=== PATIENT | male | born 1940 | race Caucasian/White ===

== ENCOUNTER 2016-12-06 21:10 | Inpatient (IN) | payer OTHER ==
[~2016-12-06] VITALS: Ht 175.3 cm; Wt 74.8 kg
[~2016-12-06 21:10] MED LIST: CHOLESTYRAMINE P4 GM PO; COMPAZINE10 MG PO; DOXYCYCLINE HY100 MG PO; FEOSOL45 MG PO; HYDROCODON-ACE1 EAC7 PO; IMODIUM MS REL1 EACH PO; Motrin PO; NORCO 5/3251 TABLET PO; ONDANSETRON HCL8 MG PO; STOOL SOFTENER100 MG PO; THORAZINE25 MG PO; TRAMADOL HCL50 MG PO; TYLENOL REGULA325 MG PO; VICODIN,LORT1 TABLET PO; Vicodin,Norco 5/325 PO
[2016-12-06 21:37] LABS: MCH 24.7 PG (29.0-34.0); MCHC 31.7 G/DL (30.0-36.0); MCV 78.1 FL (86-99); MEAN PLAT.VOLUME 10.4 uM^3 (9.0-12.4); PLATELET COUNT 287 K/uL (156-360); RBC DIS.WIDTH-CV 21.4 % (11.8-14.6); RBC DIS.WIDTH-SD 55.2 % (39-53)
[2016-12-06 21:38] LABS: RED BLOOD COUNT 5.38 M/uL (4.00-5.50)
[2016-12-06 21:56] LABS: CHLORIDE 105 mEq/L (99-109); SODIUM 142 mEq/L (136-147)
[2016-12-06 21:57] LABS: GLUCOSE 190 mg/dL (70-99)
[2016-12-06 21:59] LABS: ANION GAP 18 MEQ/L (2-14)
[2016-12-06 22:01] LABS: GFR ESTIMATE (CALCULATED) > 59 mL/min/
[2016-12-06 22:02] LABS: UREA NITROGEN (BUN) 19 mg/dL (9-23)
[2016-12-06 23:27] LABS: TOTAL BILIRUBIN 1.5 mg/dL (0.0-1.0)
[2016-12-06 23:28] LABS: ALKALINE PHOSPHATASE 121 IU/L (3-129)
[2016-12-06 23:31] LABS: DIRECT BILIRUBIN 0.8 mg/dL (0.0-0.3)
[2016-12-06 23:32] LABS: LIPASE 10 U/L (1.0-51.0)
[2016-12-06 23:53] LABS: TROP-I INTERPRETATION NEGATIVE; TROPONIN-I < 0.01 ng/mL (0.0-0.30)
[2016-12-07] MEDS ORDERED: PROCHLORPERAZIN10 MG PO (01:01)
[2016-12-07 01:14] LABS: SPECIFIC GRAVITY 1.081 (1.000-1.030)
[2016-12-07 01:20] LABS: COLOR DK YELLOW ((YELLOW)); LEUKOCYTES NEGATIVE; NITRITE NEGATIVE
[2016-12-07 01:21] LABS: ADD MIUA? NO; BILIRUBIN NEGATIVE; BLOOD NEGATIVE; GLUCOSE (STRIP) NEGATIVE; KETONES 5; PROTEIN (STRIP) 30; UCUL ADDED? NO; UROBILINOGEN 0.2 MG/DL (0.2-1.0)
[2016-12-07 04:07] VITALS: BP 101/59
[2016-12-07 06:57] LABS: Estimated Average Glucose 111 mg/dL (70-123); HEMOGLOBIN A1c (GLYCOHEMOGLOB) 5.5 % HGB (Below 5.7)
[2016-12-07 08:10] VITALS: BP 99/55
[2016-12-07 11:16] VITALS: BP 92/54
[2016-12-07 15:35] VITALS: BP 96/53
[2016-12-07 19:38] VITALS: BP 100/55
[2016-12-07 23:43] VITALS: BP 100/50
[2016-12-08 03:21] VITALS: BP 103/57
[2016-12-08 06:58] LABS: ALKALINE PHOSPHATASE 60 IU/L (3-129); ANION GAP 10 MEQ/L (2-14); CHLORIDE 111 MEQ/L (99-109); DIRECT BILIRUBIN 0.3 mg/dL (0.0-0.3); GFR ESTIMATE (CALCULATED) > 59 mL/min/; POTASSIUM 3.2 MEQ/L (3.7-5.4); SAMPLE HEMOLYSIS CHECK 0; SAMPLE ICTERIC CHECK 0; SAMPLE LIPEMIA CHECK 0; SODIUM 144 MEQ/L (136-147); UREA NITROGEN (BUN) 12 mg/dL (9-23)
[2016-12-08 07:01] LABS: GLUCOSE 78 mg/dL (70-99)
[2016-12-08 07:13] VITALS: BP 120/57
[2016-12-08 07:34] LABS: EOSINOPHIL (%) 0.6 % (0-5); HEMATOCRIT 30.5 % (38.0-50.0); IMMATURE GRANULOCYTE (%) 0.2 % (0.0-0.7); LYMPHOCYTE COUNT 0.9 K/uL (1.0-2.8); MCH 24.3 PG (29.0-34.0); MCHC 30.5 G/DL (30.0-36.0); MCV 79.6 FL (86-99); MONOCYTE (%) 11.3 % (3-12); MONOCYTE COUNT 0.5 K/uL (0-0.8); NEUTROPHIL (%) 67.7 % (45-76); NEUTROPHIL COUNT 3.2 K/uL (1.8-6.4); RBC DIS.WIDTH-CV 20.6 % (11.8-14.6)
[2016-12-08 07:44] LABS: RED BLOOD COUNT 3.83 M/uL (4.00-5.50); WHITE BLOOD COUNT 4.7 K/uL (4.1-10.2)
[2016-12-08 08:07] LABS: PLAT.SUFFICIENCY DECREASED; USER ID STC
[2016-12-08 08:19] LABS: PLATELET COUNT 110 K/uL (156-360)
[2016-12-08 16:02] VITALS: BP 125/80
[2016-12-08 23:10] VITALS: BP 125/60
[2016-12-09 07:19] LABS: ALKALINE PHOSPHATASE 59 IU/L (3-129); ANION GAP 11 MEQ/L (2-14); CHLORIDE 110 MEQ/L (99-109); GFR ESTIMATE (CALCULATED) > 59 mL/min/; GLUCOSE 69 mg/dL (70-99); POTASSIUM 3.2 MEQ/L (3.7-5.4); SAMPLE HEMOLYSIS CHECK 0; SAMPLE ICTERIC CHECK 0; SAMPLE LIPEMIA CHECK 0; SODIUM 145 MEQ/L (136-147); TOTAL BILIRUBIN 0.9 MG/DL (0.0-1.0); UREA NITROGEN (BUN) 5 mg/dL (9-23)
[2016-12-09 07:30] VITALS: BP 125/59
[2016-12-09 07:48] LABS: EOSINOPHIL (%) 1.8 % (0-5); EOSINOPHIL COUNT 0.1 K/uL (0-0.3); HEMATOCRIT 31.6 % (38.0-50.0); IMMATURE GRANULOCYTE (%) 0.5 % (0.0-0.7); LYMPHOCYTE COUNT 0.9 K/uL (1.0-2.8); MCH 24.3 PG (29.0-34.0); MCHC 30.7 G/DL (30.0-36.0); MCV 79.2 FL (86-99); MONOCYTE (%) 12.4 % (3-12); MONOCYTE COUNT 0.5 K/uL (0-0.8); NEUTROPHIL (%) 64.6 % (45-76); NEUTROPHIL COUNT 2.8 K/uL (1.8-6.4); RBC DIS.WIDTH-CV 20.1 % (11.8-14.6); RED BLOOD COUNT 3.99 M/uL (4.00-5.50); WHITE BLOOD COUNT 4.4 K/uL (4.1-10.2)
[2016-12-09 07:59] LABS: PLAT.SUFFICIENCY DECREASED; PLATELET COUNT 135 K/uL (156-360)
[2016-12-09 16:12] VITALS: BP 124/60
[2016-12-10] VITALS: BP 118/59
[2016-12-10 06:51] LABS: ALKALINE PHOSPHATASE 55 IU/L (3-129); ANION GAP 7 MEQ/L (2-14); CHLORIDE 110 MEQ/L (99-109); GFR ESTIMATE (CALCULATED) > 59 mL/min/; GLUCOSE 113 mg/dL (70-99); POTASSIUM 3.2 MEQ/L (3.7-5.4); SAMPLE HEMOLYSIS CHECK 0; SAMPLE ICTERIC CHECK 0; SAMPLE LIPEMIA CHECK 0; SODIUM 143 MEQ/L (136-147); TOTAL BILIRUBIN 0.7 MG/DL (0.0-1.0); UREA NITROGEN (BUN) 2 mg/dL (9-23)
[2016-12-10 07:28] LABS: EOSINOPHIL (%) 1.8 % (0-5); EOSINOPHIL COUNT 0.1 K/uL (0-0.3); HEMATOCRIT 31.5 % (38.0-50.0); IMMATURE GRANULOCYTE (%) 0.3 % (0.0-0.7); LYMPHOCYTE COUNT 0.9 K/uL (1.0-2.8); MCH 23.9 PG (29.0-34.0); MCHC 30.5 G/DL (30.0-36.0); MCV 78.4 FL (86-99); MONOCYTE (%) 11.6 % (3-12); MONOCYTE COUNT 0.4 K/uL (0-0.8); RBC DIS.WIDTH-CV 20.1 % (11.8-14.6); RBC DIS.WIDTH-SD 56.2 % (39-53); RED BLOOD COUNT 4.02 M/uL (4.00-5.50); WHITE BLOOD COUNT 3.4 K/uL (4.1-10.2)
[2016-12-10 07:38] LABS: PLAT.SUFFICIENCY DECREASED; PLATELET COUNT 139 K/uL (156-360); USER ID SDF
[2016-12-10 08:30] VITALS: BP 122/54
[2016-12-10 15:22] VITALS: BP 109/55
[2016-12-10 23:47] VITALS: BP 121/56
[2016-12-11 07:48] VITALS: BP 120/59
[2016-12-11] MEDS ORDERED: LEVAQUIN750 MG PO (08:18)
[2016-12-11 11:22] LABS: C DIFF TOXIN NEGATIVE (NEGATIVE); PROBE CHECK PASS; SPECIMEN PROCESSING CONTROL PASS
== END 2016-12-11 13:18 | disposition home or self-care (01) | DRG 871 ==
LOC: EME 21:10 → 2EAST 12-07 02:19 → EDOF 12-07 02:19 → 2EAST 12-07 03:49
PROVIDERS: Emergency Medicine; Hospitalist; Internal Medicine; Physician Assistant Medical
DX: A41.9 Sepsis, unspecified organism (principal); C18.9 Malignant neoplasm of colon, unspecified; J18.1 Lobar pneumonia, unspecified organism; C78.89 Secondary malignant neoplasm of other digestive organs; K57.32 Diverticulitis of large intestine without perforation or abscess without bleeding; K56.60 Unspecified intestinal obstruction; D72.829 Elevated white blood cell count, unspecified; I50.9 Heart failure, unspecified; E80.6 Other disorders of bilirubin metabolism; Z88.0 Allergy status to penicillin; K57.90 Diverticulosis of intestine, part unspecified, without perforation or abscess without bleeding; Z92.21 Personal history of antineoplastic chemotherapy
CPT/HCPCS: 71020; 71275; 74000; 74177; 80048; 80053; 80076; 81003; 82948; 83036; 83605; 83690; 83880; 84484; 85025; 85027; 87040; 87070; 87205; 87493; 93005; 94640; 94640 76; 99202; 99281; 99285; J0692; J1644; J1815; J1956; J3370; J3480; J7030; J7050; S0028; S0030

== ENCOUNTER 2017-06-09 10:46 | Inpatient (IN) | payer OTHER ==
[~2017-06-09] VITALS: Ht 175.3 cm; Wt 70.2 kg
[~2017-06-09 10:46] MED LIST changes: +LEVAQUIN750 MG PO; +PROCHLORPERAZIN10 MG PO
[2017-06-09 12:32] LABS: HEMATOCRIT 38.9 % (38.0-50.0); MCH 24.6 PG (29.0-34.0); MCHC 30.8 G/DL (30.0-36.0); MCV 79.9 FL (86-99); MEAN PLAT.VOLUME 10.1 uM^3 (9.0-12.4); PLATELET COUNT 207 K/uL (156-360); RBC DIS.WIDTH-CV 22.3 % (11.8-14.6); RBC DIS.WIDTH-SD 63.6 % (39-53); RED BLOOD COUNT 4.87 M/uL (4.00-5.50); WHITE BLOOD COUNT 7.9 K/uL (4.1-10.2)
[2017-06-09 12:59] LABS: CHLORIDE 105 mEq/L (99-109)
[2017-06-09 13:00] LABS: SODIUM 139 mEq/L (136-147)
[2017-06-09 13:02] LABS: GLUCOSE 133 mg/dL (70-99)
[2017-06-09 13:03] LABS: ANION GAP 10 MEQ/L (2-14)
[2017-06-09 13:04] LABS: TOTAL BILIRUBIN 1.2 mg/dL (0.0-1.0)
[2017-06-09 13:05] LABS: ALKALINE PHOSPHATASE 157 IU/L (3-129); GFR ESTIMATE (CALCULATED) > 59 mL/min/
[2017-06-09 13:06] LABS: EOSINOPHIL (%) 0 % (0-5); IMMATURE GRANULOCYTE (%) 0.4 % (0.0-0.7); INSTRUMENT ABS NEUTROPHIL CT 6.8 K/uL; LYMPHOCYTE COUNT 0.4 K/uL (1.0-2.8); MONOCYTE (%) 8.2 % (3-12); MONOCYTE COUNT 0.7 K/uL (0-0.8); NEUTROPHIL COUNT 6.8 K/uL (1.8-6.4)
[2017-06-09 13:07] LABS: UREA NITROGEN (BUN) 18 mg/dL (9-23)
[2017-06-09 13:09] LABS: LIPASE 15 U/L (1.0-51.0)
[2017-06-09] MEDS ORDERED: ATIVAN0.5 MG PO (16:43)
[2017-06-09] MEDS ORDERED: HYDROCODON-ACE1 EAC7 PO (16:43)
[2017-06-09] MEDS ORDERED: METOCLOPRAMIDE10 MG PO (16:43)
[2017-06-09 21:14] VITALS: BP 115/66
[2017-06-09 23:32] VITALS: BP 111/53
[2017-06-10 04:09] VITALS: BP 118/63
[2017-06-10 06:18] LABS: ANION GAP 5 MEQ/L (2-14); CHLORIDE 109 MEQ/L (99-109); GFR ESTIMATE (CALCULATED) > 59 mL/min/; POTASSIUM 4.2 MEQ/L (3.7-5.4); SAMPLE HEMOLYSIS CHECK 0; SAMPLE ICTERIC CHECK 0; SAMPLE LIPEMIA CHECK 0; SODIUM 142 MEQ/L (136-147); UREA NITROGEN (BUN) 15 mg/dL (9-23)
[2017-06-10 06:22] LABS: GLUCOSE 73 mg/dL (70-99)
[2017-06-10 06:23] LABS: HEMATOCRIT 30.7 % (38.0-50.0); MCH 25.4 PG (29.0-34.0); MCHC 30.9 G/DL (30.0-36.0); MCV 82.1 FL (86-99); RBC DIS.WIDTH-CV 22.5 % (11.8-14.6); RBC DIS.WIDTH-SD 65.9 % (39-53); WHITE BLOOD COUNT 6.1 K/uL (4.1-10.2)
[2017-06-10 06:57] LABS: RED BLOOD COUNT 3.74 M/uL (4.00-5.50)
[2017-06-10 07:21] LABS: PLATELET COUNT 132 K/uL (156-360)
[2017-06-10 07:48] VITALS: BP 129/68
[2017-06-10 12:00] VITALS: BP 148/68
[2017-06-10 16:00] VITALS: BP 148/68; BP 88/61
[2017-06-10 18:50] VITALS: BP 163/76
[2017-06-10 23:50] VITALS: BP 163/77
[2017-06-11] VITALS (7 sets, daily range): BP systolic 133–176; BP diastolic 61–86
[2017-06-11 10:41] LABS: HEMATOCRIT 36.4 % (38.0-50.0); MCHC 30.2 G/DL (30.0-36.0); MCV 82.7 FL (86-99); MEAN PLAT.VOLUME 10.7 uM^3 (9.0-12.4); PLATELET COUNT 147 K/uL (156-360); RBC DIS.WIDTH-CV 22.2 % (11.8-14.6); RBC DIS.WIDTH-SD 65.9 % (39-53); WHITE BLOOD COUNT 4.4 K/uL (4.1-10.2)
[2017-06-12 04:30] VITALS: BP 158/78
[2017-06-12 07:51] VITALS: BP 168/78
[2017-06-12 11:59] VITALS: BP 154/75
[2017-06-12 15:30] VITALS: BP 159/74
[2017-06-12 18:09] VITALS: BP 154/77
[2017-06-12 20:33] VITALS: BP 139/74
[2017-06-13 00:01] VITALS: BP 129/71
[2017-06-13 03:35] VITALS: BP 128/60
[2017-06-13 08:07] VITALS: BP 157/76
[2017-06-13] MEDS ORDERED: LOPRESSOR25 MG PO (08:42)
== END 2017-06-13 13:42 | disposition home health service (06) | DRG 375 ==
LOC: EME 10:46 → 4EAST 17:11 → EDOF 17:11 → 4EAST 21:06 → ENRESERV 06-12 07:54 → 5SOUTH 06-12 18:05 → ENPENDDIS 06-13 → 5SOUTH 06-13 13:42
PROVIDERS: Emergency Medicine; Hospitalist; Internal Medicine
DX: C78.6 Secondary malignant neoplasm of retroperitoneum and peritoneum (principal); K56.5 Intestinal adhesions [bands] with obstruction (postinfection); I47.1 Supraventricular tachycardia; I47.2 Ventricular tachycardia; I48.92 Unspecified atrial flutter; I48.91 Unspecified atrial fibrillation; D64.9 Anemia, unspecified; I10 Essential (primary) hypertension; F32.9 Major depressive disorder, single episode, unspecified; I45.2 Bifascicular block; Z85.028 Personal history of other malignant neoplasm of stomach; Z85.828 Personal history of other malignant neoplasm of skin; Z90.49 Acquired absence of other specified parts of digestive tract; Z85.038 Personal history of other malignant neoplasm of large intestine; Z88.0 Allergy status to penicillin
CPT/HCPCS: 71010; 74000; 74177; 78582; 80048; 80053; 83690; 85025; 85027; 93005; 93306; 94799; 99281; 99285; A9540; A9567; J1650; J2270; J2405; J7030

== ENCOUNTER 2017-06-17 11:24 | Inpatient (IN) | payer OTHER ==
[~2017-06-17] VITALS: Ht 175.3 cm; Wt 69.1 kg
[~2017-06-17 11:24] MED LIST changes: +ATIVAN0.5 MG PO; +LOPRESSOR25 MG PO; +METOCLOPRAMIDE10 MG PO
[2017-06-17 12:32] LABS: HEMATOCRIT 39.4 % (38.0-50.0); MCH 24.7 PG (29.0-34.0); MCV 79.9 FL (86-99); MEAN PLAT.VOLUME 9.9 uM^3 (9.0-12.4); PLATELET COUNT 265 K/uL (156-360); RBC DIS.WIDTH-CV 22.4 % (11.8-14.6); RBC DIS.WIDTH-SD 64.7 % (39-53); RED BLOOD COUNT 4.93 M/uL (4.00-5.50); WHITE BLOOD COUNT 14.7 K/uL (4.1-10.2)
[2017-06-17 12:42] LABS: CHLORIDE 104 mEq/L (99-109); POTASSIUM 3.9 mEq/L (3.7-5.4); SODIUM 140 mEq/L (136-147)
[2017-06-17 12:44] LABS: GLUCOSE 120 mg/dL (70-99)
[2017-06-17 12:45] LABS: ANION GAP 11 MEQ/L (2-14)
[2017-06-17 12:46] LABS: TOTAL BILIRUBIN 1.1 mg/dL (0.0-1.0)
[2017-06-17 12:48] LABS: ALKALINE PHOSPHATASE 139 IU/L (3-129); GFR ESTIMATE (CALCULATED) > 59 mL/min/
[2017-06-17 12:49] LABS: UREA NITROGEN (BUN) 21 mg/dL (9-23)
[2017-06-17 20:04] VITALS: BP 132/68
[2017-06-17 23:51] VITALS: BP 118/58
[2017-06-18 03:37] VITALS: BP 125/64
[2017-06-18 06:16] LABS: ALKALINE PHOSPHATASE 95 IU/L (3-129); ANION GAP 8 MEQ/L (2-14); CHLORIDE 109 MEQ/L (99-109); GFR ESTIMATE (CALCULATED) > 59 mL/min/; SAMPLE HEMOLYSIS CHECK 0; SAMPLE ICTERIC CHECK 0; SAMPLE LIPEMIA CHECK 0; SODIUM 143 MEQ/L (136-147); TOTAL BILIRUBIN 0.8 MG/DL (0.0-1.0); UREA NITROGEN (BUN) 18 mg/dL (9-23)
[2017-06-18 06:36] LABS: GLUCOSE 78 mg/dL (70-99)
[2017-06-18 07:30] VITALS: BP 138/70
[2017-06-18 11:15] LABS: INTERNAL CONTROL VALID? YES
[2017-06-18 11:25] VITALS: BP 134/71
[2017-06-18 11:49] LABS: C DIFF TOXIN NEGATIVE (NEGATIVE)
[2017-06-18 11:50] LABS: PROBE CHECK PASS; SPECIMEN PROCESSING CONTROL PASS
[2017-06-18 15:10] VITALS: BP 163/79
[2017-06-18 20:18] VITALS: BP 168/76
[2017-06-19 00:29] VITALS: BP 179/73
[2017-06-19 04:16] VITALS: BP 121/61
[2017-06-19 08:08] VITALS: BP 147/83
[2017-06-19 08:27] LABS: HEMATOCRIT 33.7 % (38.0-50.0); MCH 25.5 PG (29.0-34.0); MCHC 30.9 G/DL (30.0-36.0); MCV 82.6 FL (86-99); RBC DIS.WIDTH-CV 21.7 % (11.8-14.6); RBC DIS.WIDTH-SD 65.7 % (39-53); RED BLOOD COUNT 4.08 M/uL (4.00-5.50); WHITE BLOOD COUNT 4.8 K/uL (4.1-10.2)
[2017-06-19 08:45] LABS: MEAN PLAT.VOLUME 9.8 uM^3 (9.0-12.4); PLAT.SUFFICIENCY ADEQUATE
[2017-06-19 08:46] LABS: PLATELET COUNT 164 K/uL (156-360)
[2017-06-19 09:00] LABS: ANION GAP 12 MEQ/L (2-14); CHLORIDE 106 MEQ/L (99-109); GFR ESTIMATE (CALCULATED) > 59 mL/min/; GLUCOSE 56 mg/dL (70-99); POTASSIUM 3.8 MEQ/L (3.7-5.4); SAMPLE HEMOLYSIS CHECK 0; SAMPLE ICTERIC CHECK 0; SAMPLE LIPEMIA CHECK 0; SODIUM 140 MEQ/L (136-147); UREA NITROGEN (BUN) 12 mg/dL (9-23)
[2017-06-19 12:11] VITALS: BP 148/70
[2017-06-19 16:00] VITALS: BP 135/68
[2017-06-19 19:33] VITALS: BP 162/77
[2017-06-20 00:08] VITALS: BP 166/74
[2017-06-20 04:49] VITALS: BP 163/72
[2017-06-20 08:32] VITALS: BP 158/76
[2017-06-20 12:03] VITALS: BP 148/76
[2017-06-20 16:17] VITALS: BP 160/92
[2017-06-20 23:49] VITALS: BP 156/72
[2017-06-21 03:34] VITALS: BP 149/76
[2017-06-21] MEDS ORDERED: ATIVAN0.5 MG PO (08:25)
[2017-06-21] MEDS ORDERED: ANASPAZ0.125 MG PO (08:25)
[2017-06-21] MEDS ORDERED: MORPHINE CON20 MG/M1 PO (08:25)
[2017-06-21 08:59] VITALS: BP 150/71
== END 2017-06-21 11:00 | disposition hospice, home (50) | DRG 375 ==
LOC: EME 11:24 → EDOF 18:09 → 5SOUTH 18:09 → ENRESERV 18:13 → 5SOUTH 19:32
PROVIDERS: Hospitalist; Internal Medicine
DX: C78.6 Secondary malignant neoplasm of retroperitoneum and peritoneum (principal); R18.8 Other ascites; C18.9 Malignant neoplasm of colon, unspecified; K56.60 Unspecified intestinal obstruction; Z51.5 Encounter for palliative care; Z66 Do not resuscitate; I10 Essential (primary) hypertension; I45.10 Unspecified right bundle-branch block; I48.0 Paroxysmal atrial fibrillation; R00.0 Tachycardia, unspecified; Z90.49 Acquired absence of other specified parts of digestive tract; Z92.21 Personal history of antineoplastic chemotherapy; Z88.0 Allergy status to penicillin; Z85.828 Personal history of other malignant neoplasm of skin; Z80.1 Family history of malignant neoplasm of trachea, bronchus and lung; Z82.5 Family history of asthma and other chronic lower respiratory diseases
CPT/HCPCS: 74000; 74022; 74177; 80048; 80053; 82948; 83630; 85027; 87177; 87493; 93005; 99281; 99285; J1644; J2405; J2765; J7030; S0028